=== PATIENT | female | born 1995 | race Asian ===

== ENCOUNTER 2022-02-13 13:07 | Outpatient (CLI) | payer OTHER ==
[2022-02-13 13:40] LABS: PLATELET COUNT 194 K/uL (152-353)
== END 2022-02-13 19:00 | disposition home or self-care (01) ==
LOC: LAB 13:07
PROVIDERS: ATTEND Internal Medicine Cardiovascular Disease
DX: I50.43 Acute on chronic combined systolic (congestive) and diastolic (congestive) heart failure (principal); I25.5 Ischemic cardiomyopathy; I42.0 Dilated cardiomyopathy; Z95.811 Presence of heart assist device; R78.81 Bacteremia; Z76.82 Awaiting organ transplant status; Z51.81 Encounter for therapeutic drug level monitoring; Z79.899 Other long term (current) drug therapy
CPT/HCPCS: 80053; 82550; 83721; 83735; 83880; 85027; 85610

== ENCOUNTER 2022-02-18 13:31 | Outpatient (CLI) | payer OTHER ==
[2022-02-18 14:05] LABS: POTASSIUM 3.6 mmol/L (3.6-5.2)
[2022-02-18 14:07] LABS: PLATELET COUNT 196 K/uL (152-353)
== END 2022-02-18 19:35 | disposition home or self-care (01) ==
LOC: LAB 13:31
PROVIDERS: ATTEND Internal Medicine Cardiovascular Disease
DX: I25.5 Ischemic cardiomyopathy (principal); I50.42 Chronic combined systolic (congestive) and diastolic (congestive) heart failure; I42.0 Dilated cardiomyopathy; I50.43 Acute on chronic combined systolic (congestive) and diastolic (congestive) heart failure; Z95.811 Presence of heart assist device; R78.81 Bacteremia; Z76.82 Awaiting organ transplant status; Z51.81 Encounter for therapeutic drug level monitoring
CPT/HCPCS: 80053; 82465; 82550; 83735; 83880; 85027; 85610

== ENCOUNTER 2022-02-25 10:41 | Outpatient (CLI) | payer OTHER ==
[2022-02-25 11:07] LABS: PLATELET COUNT 197 K/uL (152-353)
[2022-02-25 11:13] LABS: POTASSIUM 3.7 mmol/L (3.6-5.2)
== END 2022-02-25 19:40 | disposition home or self-care (01) ==
LOC: LAB 10:41
PROVIDERS: ATTEND Internal Medicine Cardiovascular Disease
DX: R78.81 Bacteremia (principal); I50.42 Chronic combined systolic (congestive) and diastolic (congestive) heart failure; I25.5 Ischemic cardiomyopathy; I42.0 Dilated cardiomyopathy; I50.43 Acute on chronic combined systolic (congestive) and diastolic (congestive) heart failure; Z95.811 Presence of heart assist device; Z76.82 Awaiting organ transplant status; Z51.81 Encounter for therapeutic drug level monitoring; I11.0 Hypertensive heart disease with heart failure; Z79.899 Other long term (current) drug therapy
CPT/HCPCS: 80053; 82550; 83721; 83735; 83880; 85027; 85610

== ENCOUNTER 2022-03-11 11:56 | Outpatient (CLI) | payer OTHER ==
[2022-03-11 12:23] LABS: PLATELET COUNT 209 K/uL (152-353)
[2022-03-11 12:44] LABS: POTASSIUM 4.1 mmol/L (3.6-5.2)
== END 2022-03-11 20:28 | disposition home or self-care (01) ==
LOC: LAB 11:56
PROVIDERS: ATTEND Internal Medicine Cardiovascular Disease
DX: R78.81 Bacteremia (principal); I50.42 Chronic combined systolic (congestive) and diastolic (congestive) heart failure; I25.5 Ischemic cardiomyopathy; I42.0 Dilated cardiomyopathy; I50.43 Acute on chronic combined systolic (congestive) and diastolic (congestive) heart failure; Z95.811 Presence of heart assist device; Z76.82 Awaiting organ transplant status; Z51.81 Encounter for therapeutic drug level monitoring; I11.0 Hypertensive heart disease with heart failure; Z79.899 Other long term (current) drug therapy
CPT/HCPCS: 80053; 82465; 82550; 83735; 83880; 85027; 85610

== ENCOUNTER 2022-03-18 13:57 | Outpatient (CLI) | payer OTHER ==
[2022-03-18 14:21] LABS: PLATELET COUNT 203 K/uL (152-353)
== END 2022-03-18 20:09 | disposition home or self-care (01) ==
LOC: LAB 13:57
PROVIDERS: ATTEND Internal Medicine Cardiovascular Disease
DX: I50.42 Chronic combined systolic (congestive) and diastolic (congestive) heart failure (principal); Z45.2 Encounter for adjustment and management of vascular access device; I25.5 Ischemic cardiomyopathy; I42.0 Dilated cardiomyopathy; I50.43 Acute on chronic combined systolic (congestive) and diastolic (congestive) heart failure; Z95.811 Presence of heart assist device; R78.81 Bacteremia; Z76.82 Awaiting organ transplant status; Z51.81 Encounter for therapeutic drug level monitoring; Z79.899 Other long term (current) drug therapy
CPT/HCPCS: 80053; 82465; 82550; 83735; 83880; 85027; 85610

== ENCOUNTER 2022-03-25 12:37 | Outpatient (CLI) | payer OTHER ==
[2022-03-25 12:54] LABS: PLATELET COUNT 206 K/uL (152-353)
[2022-03-25 13:11] LABS: POTASSIUM 3.9 mmol/L (3.6-5.2)
== END 2022-03-25 19:36 | disposition home or self-care (01) ==
LOC: LAB 12:37
PROVIDERS: ATTEND Internal Medicine Cardiovascular Disease
DX: Z45.2 Encounter for adjustment and management of vascular access device (principal); R78.81 Bacteremia; I50.42 Chronic combined systolic (congestive) and diastolic (congestive) heart failure; I25.5 Ischemic cardiomyopathy; I42.0 Dilated cardiomyopathy; I50.43 Acute on chronic combined systolic (congestive) and diastolic (congestive) heart failure; Z95.811 Presence of heart assist device; Z76.82 Awaiting organ transplant status; Z51.81 Encounter for therapeutic drug level monitoring; Z79.899 Other long term (current) drug therapy; I11.0 Hypertensive heart disease with heart failure
CPT/HCPCS: 80053; 82550; 82553; 83721; 83735; 83880; 85027; 85610

== ENCOUNTER 2022-04-01 13:02 | Outpatient (CLI) | payer OTHER ==
[2022-04-01 13:21] LABS: PLATELET COUNT 213 K/uL (152-353)
[2022-04-01 13:25] LABS: POTASSIUM 4.2 mmol/L (3.6-5.2)
== END 2022-04-01 20:25 | disposition home or self-care (01) ==
LOC: LAB 13:02
PROVIDERS: ATTEND Internal Medicine Cardiovascular Disease
DX: Z45.2 Encounter for adjustment and management of vascular access device (principal); R78.81 Bacteremia; I50.42 Chronic combined systolic (congestive) and diastolic (congestive) heart failure; I25.5 Ischemic cardiomyopathy; I42.0 Dilated cardiomyopathy; I50.43 Acute on chronic combined systolic (congestive) and diastolic (congestive) heart failure; Z95.811 Presence of heart assist device; Z76.82 Awaiting organ transplant status; Z51.81 Encounter for therapeutic drug level monitoring; Z79.899 Other long term (current) drug therapy; I11.0 Hypertensive heart disease with heart failure
CPT/HCPCS: 80053; 82465; 82550; 83735; 83880; 85027; 85610

== ENCOUNTER 2022-04-08 14:36 | Outpatient (CLI) | payer OTHER ==
[2022-04-08 14:57] LABS: POTASSIUM 4.2 mmol/L (3.6-5.2)
[2022-04-08 14:59] LABS: PLATELET COUNT 197 K/uL (152-353)
== END 2022-04-08 18:59 | disposition home or self-care (01) ==
LOC: LAB 14:36
PROVIDERS: ATTEND Internal Medicine Cardiovascular Disease
DX: R78.81 Bacteremia (principal); I50.42 Chronic combined systolic (congestive) and diastolic (congestive) heart failure; Z95.818 Presence of other cardiac implants and grafts; I25.5 Ischemic cardiomyopathy; I42.0 Dilated cardiomyopathy; I50.43 Acute on chronic combined systolic (congestive) and diastolic (congestive) heart failure; Z95.811 Presence of heart assist device; Z76.82 Awaiting organ transplant status; Z51.81 Encounter for therapeutic drug level monitoring; I11.0 Hypertensive heart disease with heart failure; Z79.899 Other long term (current) drug therapy
CPT/HCPCS: 80053; 82550; 83721; 83735; 83880; 85027; 85610

== ENCOUNTER 2022-04-16 14:29 | Outpatient (CLI) | payer OTHER ==
[2022-04-16 15:06] LABS: POTASSIUM 3.8 mmol/L (3.6-5.2)
[2022-04-16 15:30] LABS: PLATELET COUNT 165 K/uL (152-353)
== END 2022-04-16 22:21 | disposition home or self-care (01) ==
LOC: LAB 14:29
PROVIDERS: ATTEND Internal Medicine Cardiovascular Disease
DX: R78.81 Bacteremia (principal); I50.42 Chronic combined systolic (congestive) and diastolic (congestive) heart failure; Z95.818 Presence of other cardiac implants and grafts; I25.5 Ischemic cardiomyopathy; I42.0 Dilated cardiomyopathy; I50.43 Acute on chronic combined systolic (congestive) and diastolic (congestive) heart failure; Z95.811 Presence of heart assist device; Z76.82 Awaiting organ transplant status; Z51.81 Encounter for therapeutic drug level monitoring; I11.0 Hypertensive heart disease with heart failure; Z79.899 Other long term (current) drug therapy
CPT/HCPCS: 80053; 82550; 83721; 83735; 83880; 85027; 85610

== ENCOUNTER 2022-04-23 12:30 | Outpatient (CLI) | payer OTHER ==
[2022-04-23 12:57] LABS: PLATELET COUNT 211 K/uL (152-353)
[2022-04-23 13:12] LABS: POTASSIUM 4.1 mmol/L (3.6-5.2)
== END 2022-04-23 19:01 | disposition home or self-care (01) ==
LOC: LAB 12:30
PROVIDERS: ATTEND Internal Medicine Cardiovascular Disease
DX: R78.81 Bacteremia (principal); I50.42 Chronic combined systolic (congestive) and diastolic (congestive) heart failure; I25.5 Ischemic cardiomyopathy; I42.0 Dilated cardiomyopathy; I50.43 Acute on chronic combined systolic (congestive) and diastolic (congestive) heart failure; Z95.811 Presence of heart assist device; Z76.82 Awaiting organ transplant status; Z51.81 Encounter for therapeutic drug level monitoring; Z79.899 Other long term (current) drug therapy
CPT/HCPCS: 80053; 82550; 83721; 83735; 83880; 85027; 85610

== ENCOUNTER 2022-05-06 14:56 | Outpatient (CLI) | payer OTHER ==
[2022-05-06 15:14] LABS: PLATELET COUNT 215 K/uL (152-353)
[2022-05-06 15:55] LABS: POTASSIUM 3.8 mmol/L (3.6-5.2)
== END 2022-05-06 19:06 | disposition home or self-care (01) ==
LOC: LAB 14:56
PROVIDERS: ATTEND Internal Medicine Cardiovascular Disease
DX: Z45.2 Encounter for adjustment and management of vascular access device (principal); R78.81 Bacteremia; I50.42 Chronic combined systolic (congestive) and diastolic (congestive) heart failure; I25.5 Ischemic cardiomyopathy; I42.0 Dilated cardiomyopathy; I50.43 Acute on chronic combined systolic (congestive) and diastolic (congestive) heart failure; Z95.811 Presence of heart assist device; Z76.82 Awaiting organ transplant status; Z51.81 Encounter for therapeutic drug level monitoring; I11.0 Hypertensive heart disease with heart failure; Z79.899 Other long term (current) drug therapy
CPT/HCPCS: 80053; 82550; 83721; 83735; 83880; 85027

== ENCOUNTER 2022-05-07 11:58 | Outpatient (CLI) | payer OTHER | END 2022-05-07 19:18 | disposition home or self-care (01) | LOC: LAB 11:58 | PROVIDERS: ATTEND Internal Medicine Cardiovascular Disease | DX: I11.0 Hypertensive heart disease with heart failure (principal); I50.42 Chronic combined systolic (congestive) and diastolic (congestive) heart failure; I25.5 Ischemic cardiomyopathy; I42.0 Dilated cardiomyopathy; I50.43 Acute on chronic combined systolic (congestive) and diastolic (congestive) heart failure; Z95.811 Presence of heart assist device; R78.81 Bacteremia; Z76.82 Awaiting organ transplant status; Z51.81 Encounter for therapeutic drug level monitoring; Z79.899 Other long term (current) drug therapy | CPT/HCPCS: 85610 ==

== ENCOUNTER 2022-05-13 13:22 | Outpatient (CLI) | payer OTHER ==
[2022-05-13 13:37] LABS: PLATELET COUNT 194 K/uL (152-353)
[2022-05-13 13:42] LABS: POTASSIUM 3.7 mmol/L (3.6-5.2)
== END 2022-05-13 19:25 | disposition home or self-care (01) ==
LOC: LAB 13:22
PROVIDERS: ATTEND Internal Medicine Cardiovascular Disease
DX: R78.81 Bacteremia (principal); I50.42 Chronic combined systolic (congestive) and diastolic (congestive) heart failure; I25.2 Old myocardial infarction; I25.5 Ischemic cardiomyopathy; I42.0 Dilated cardiomyopathy; I50.43 Acute on chronic combined systolic (congestive) and diastolic (congestive) heart failure; Z95.811 Presence of heart assist device; Z76.82 Awaiting organ transplant status; Z51.81 Encounter for therapeutic drug level monitoring; I11.0 Hypertensive heart disease with heart failure; Z79.899 Other long term (current) drug therapy
CPT/HCPCS: 80053; 82550; 83721; 83735; 83880; 85027; 85610

== ENCOUNTER 2022-05-20 14:07 | Outpatient (CLI) | payer OTHER ==
[2022-05-20 14:28] LABS: PLATELET COUNT 191 K/uL (152-353)
[2022-05-20 14:37] LABS: POTASSIUM 4.1 mmol/L (3.6-5.2)
== END 2022-05-20 19:06 | disposition home or self-care (01) ==
LOC: LAB 14:07
PROVIDERS: ATTEND Internal Medicine Cardiovascular Disease
DX: R78.81 Bacteremia (principal); I50.42 Chronic combined systolic (congestive) and diastolic (congestive) heart failure; Z45.2 Encounter for adjustment and management of vascular access device; I25.5 Ischemic cardiomyopathy; I42.0 Dilated cardiomyopathy; I50.43 Acute on chronic combined systolic (congestive) and diastolic (congestive) heart failure; Z95.811 Presence of heart assist device; Z76.82 Awaiting organ transplant status; Z51.81 Encounter for therapeutic drug level monitoring; I11.0 Hypertensive heart disease with heart failure; Z79.899 Other long term (current) drug therapy
CPT/HCPCS: 80053; 82550; 83721; 83735; 83880; 85027; 85610